=== PATIENT | female | born 2000 | race Caucasian/White ===

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

== ENCOUNTER 2020-09-23 17:39 | Inpatient (IN) | payer OTHER ==
[~2020-09-23] VITALS: Ht 147.3 cm; Wt 68.0 kg
[~2020-09-23 17:39] MED LIST changes: +AUGMENTIN 875-1 EACH PO; +IBUPROFEN600 MG PO; +KEFLEX500 MG PO; +SPRINTEC 28 DA1 EACH PO; +ZOFRAN ODT 4 MG4 MG PO
[2020-09-23 19:44] LABS: HEMOGLOBIN 11.1 gm/dl (12.3-15.3); RED BLOOD COUNT 4.07 M/UL (4.00-5.10); WHITE BLOOD COUNT 10.5 K/UL (4.5-11.0)
[2020-09-23 19:49] LABS: BUN/CREATININE RATIO 6 (0-10)
[2020-09-23] MEDS ORDERED: PROTONIX40 MG PO (20:58)
[2020-09-23] MEDS ORDERED: VISTARIL25 MG PO (21:00)
[2020-09-25 06:50] LABS: HEMOGLOBIN 9.2 gm/dl (12.3-15.3)
[2020-09-26] MEDS ORDERED: DOCUSATE SODIU100 MG PO (13:38)
[2020-09-26] MEDS ORDERED: IBUPROFEN600 MG PO (13:38)
[2020-09-26] MEDS ORDERED: LABETALOL HCL100 MG PO (13:38)
[2020-09-26] MEDS ORDERED: LORTAB 5-325 M1 EACH PO (13:38)
== END 2020-09-26 16:28 | disposition home or self-care (01) | DRG 786 ==
LOC: GENOP 17:39 → OB 20:23
PROVIDERS: Obstetrics & Gynecology; ADMIT Obstetrics & Gynecology
PROC: 0U7C7ZZ Dilation of Cervix, Via Natural or Artificial Opening (ICD-10-PCS; 2020-09-23)
PROC: 3E033VJ Introduction of Other Hormone into Peripheral Vein, Percutaneous Approach (ICD-10-PCS; 2020-09-24)
PROC: 10907ZC Drainage of Amniotic Fluid, Therapeutic from Products of Conception, Via Natural or Artificial Opening (ICD-10-PCS; 2020-09-24)
PROC: 10D00Z1 Extraction of Products of Conception, Low, Open Approach (ICD-10-PCS; principal; 2020-09-24 19:18)
PROC: 3E0234Z Introduction of Serum, Toxoid and Vaccine into Muscle, Percutaneous Approach (ICD-10-PCS; 2020-09-25)
DX: O14.94 Unspecified pre-eclampsia, complicating childbirth (principal); K83.1 Obstruction of bile duct; O36.0930 Maternal care for other rhesus isoimmunization, third trimester, not applicable or unspecified; Z3A.36 36 weeks gestation of pregnancy; Z37.0 Single live birth; O26.62 Liver and biliary tract disorders in childbirth; O62.1 Secondary uterine inertia; Z20.822 Contact with and (suspected) exposure to COVID-19; Z23 Encounter for immunization; O99.344 Other mental disorders complicating childbirth; F41.9 Anxiety disorder, unspecified; O99.513 Diseases of the respiratory system complicating pregnancy, third trimester; J45.909 Unspecified asthma, uncomplicated
CPT/HCPCS: 36415; 80053; 81001; 82247; 82248; 82570; 83615; 83735; 84156; 84550; 85014; 85018; 85025; 85379; 85384; 85461; 85610; 85730; 86850; 86900; 86901; 90715; C9113; J0595; J0690; J1170; J1885; J2250; J2274; J2405; J2590; J2765; J2790; J2795; J3430; J3475; J7030; J7120; Q0177; U0003

== ENCOUNTER 2020-10-12 05:23 | Emergency (ER) | payer OTHER ==
[~2020-10-12 05:23] MED LIST changes: +DOCUSATE SODIU100 MG PO; +LABETALOL HCL100 MG PO; +LORTAB 5-325 M1 EACH PO; +PROTONIX40 MG PO; +VISTARIL25 MG PO
[2020-10-12 06:04] LABS: HEMOGLOBIN 11.9 gm/dl (12.3-15.3); RED BLOOD COUNT 4.51 M/UL (4.00-5.10); WHITE BLOOD COUNT 10.2 K/UL (4.5-11.0)
[2020-10-12 06:25] LABS: BUN/CREATININE RATIO 14 (0-10)
[2020-10-12] MEDS ORDERED: PHENERGAN 25 MG25 M1 PO (09:32)
== END 2020-10-12 09:39 | disposition home or self-care (01) ==
LOC: ER1 05:23
PROVIDERS: Emergency Medicine
DX: O90.89 Other complications of the puerperium, not elsewhere classified (principal); R07.89 Other chest pain; R11.2 Nausea with vomiting, unspecified; O14.95 Unspecified pre-eclampsia, complicating the puerperium; Z98.890 Other specified postprocedural states; Z20.822 Contact with and (suspected) exposure to COVID-19
CPT/HCPCS: 80053; 81001; 82550; 82553; 83690; 83735; 83874; 84100; 84484; 85025; 85610; 85730; 87086; 93005; 96374; 96375; 99285; J2405; Q9967; U0002

== ENCOUNTER → 2020-10-24 | Outpatient (CLI) | payer OTHER ==
[~2020-10-24] MED LIST changes: +ALL DAY ALLERGY10 M2 PO; +HYDROXYZINE HCL10 MG PO; +PHENERGAN 25 MG25 M1 PO; +PREDNISONE 20 M20 MG PO; +PREDNISONE20 MG PO; +ZYRTEC10 MG PO
== END ==
LOC: ECHO 11:59
DX: R07.9 Chest pain, unspecified (principal)
CPT/HCPCS: ECHO; 93306

== ENCOUNTER 2020-11-06 05:15 | Emergency (ER) | payer OTHER ==
[~2020-11-06 05:15] MED LIST changes: -ALL DAY ALLERGY10 M2 PO; -HYDROXYZINE HCL10 MG PO; -PREDNISONE 20 M20 MG PO; -PREDNISONE20 MG PO; -ZYRTEC10 MG PO
[2020-11-06 06:02] LABS: HEMOGLOBIN 12.5 gm/dl (12.3-15.3); RED BLOOD COUNT 4.67 M/UL (4.00-5.10); WHITE BLOOD COUNT 10.6 K/UL (4.5-11.0)
[2020-11-06 06:18] LABS: BUN/CREATININE RATIO 12 (0-10)
== END 2020-11-06 09:54 | disposition home or self-care (01) ==
LOC: ER1 05:15
PROVIDERS: Emergency Medicine
DX: R51.9 Headache, unspecified (principal); F41.9 Anxiety disorder, unspecified; I82.890 Acute embolism and thrombosis of other specified veins; M54.2 Cervicalgia; R11.0 Nausea
CPT/HCPCS: 70450; 80053; 81001; 85025; 99284; J2060; Q9967

== ENCOUNTER 2020-11-09 00:41 | Emergency (ER) | payer OTHER ==
[2020-11-09 04:29] LABS: HEMOGLOBIN 11.9 gm/dl (12.3-15.3); RED BLOOD COUNT 4.45 M/UL (4.00-5.10)
[2020-11-09 04:58] LABS: BUN/CREATININE RATIO 17 (0-10)
[2020-11-09] MEDS ORDERED: HYDROXYZINE HCL10 MG PO (09:03)
== END 2020-11-09 09:15 | disposition home or self-care (01) ==
LOC: ER1 00:41
PROVIDERS: Emergency Medicine
DX: R20.2 Paresthesia of skin (principal)
CPT/HCPCS: 80053; 81001; 82550; 82553; 83735; 83874; 84484; 85025; 96374; 96375; 99285; J2060; J2405; Q9967

== ENCOUNTER 2020-11-12 18:43 | Emergency (ER) | payer OTHER ==
[~2020-11-12 18:43] MED LIST changes: +HYDROXYZINE HCL10 MG PO
== END 2020-11-13 00:51 | disposition home or self-care (01) ==
LOC: ER1 18:43
DX: R20.2 Paresthesia of skin (principal); Z88.8 Allergy status to other drugs, medicaments and biological substances; Z79.899 Other long term (current) drug therapy; Z90.89 Acquired absence of other organs
CPT/HCPCS: 72125; 72128; 72131; 84703; 99284

== ENCOUNTER 2020-11-24 16:27 | Emergency (ER) | payer OTHER | END 2020-11-24 17:24 | disposition left against medical advice (07) | LOC: ER1 16:27 | DX: Z53.21 Procedure and treatment not carried out due to patient leaving prior to being seen by health care provider (principal) ==

== ENCOUNTER 2020-11-28 06:13 | Emergency (ER) | payer OTHER | END 2020-11-28 07:20 | disposition home or self-care (01) | LOC: ER1 06:13 | DX: G47.9 Sleep disorder, unspecified (principal); Z88.8 Allergy status to other drugs, medicaments and biological substances; Z79.899 Other long term (current) drug therapy | CPT/HCPCS: 93005; 99283 ==

== ENCOUNTER 2020-12-12 05:08 | Emergency (ER) | payer OTHER ==
[2020-12-12 06:44] LABS: RED BLOOD COUNT 4.07 M/UL (4.00-5.10); WHITE BLOOD COUNT 10.3 K/UL (4.5-11.0)
[2020-12-12] MEDS ORDERED: PREDNISONE 20 M20 MG PO (07:02)
[2020-12-12] MEDS ORDERED: ALL DAY ALLERGY10 M2 PO (07:02)
[2020-12-12 07:27] LABS: BUN/CREATININE RATIO 14 (0-10)
== END 2020-12-12 07:46 | disposition home or self-care (01) ==
LOC: ER1 05:08
PROVIDERS: Emergency Medicine
DX: R21 Rash and other nonspecific skin eruption (principal); Z88.8 Allergy status to other drugs, medicaments and biological substances; Z90.89 Acquired absence of other organs
CPT/HCPCS: 80053; 83735; 84703; 85025; 99283

== ENCOUNTER → 2021-01-17 | Outpatient (CLI) | payer OTHER ==
[~2021-01-17] MED LIST changes: +ALL DAY ALLERGY10 M2 PO; +PREDNISONE 20 M20 MG PO; +PREDNISONE20 MG PO; +ZYRTEC10 MG PO
[2021-01-17 09:35] LABS: HEMOGLOBIN 12.3 gm/dl (12.3-15.3); RED BLOOD COUNT 4.61 M/UL (4.00-5.10); WHITE BLOOD COUNT 6.1 K/UL (4.5-11.0)
[2021-01-17 10:00] LABS: BUN/CREATININE RATIO 15 (0-10)
[2021-01-18 08:10] LABS: VITAMIN D, 25-HYDROXY 13.3 ng/mL (30.0-100.0)
== END ==
LOC: LAB 09:04
PROVIDERS: Family Medicine
DX: R20.2 Paresthesia of skin (principal)
CPT/HCPCS: 36415; 80053; 82607; 83921; 84443; 85025

== ENCOUNTER 2021-02-07 01:49 | Emergency (ER) | payer OTHER ==
[~2021-02-07 01:49] MED LIST changes: -PREDNISONE20 MG PO; -ZYRTEC10 MG PO
[2021-02-07 03:19] LABS: HEMOGLOBIN 13.3 gm/dl (12.3-15.3); RED BLOOD COUNT 4.76 M/UL (4.00-5.10); WHITE BLOOD COUNT 8.6 K/UL (4.5-11.0)
[2021-02-07 03:42] LABS: BUN/CREATININE RATIO 15 (0-10)
[2021-02-07] MEDS ORDERED: ZOFRAN ODT 4 MG4 MG PO (04:16)
== END 2021-02-07 04:25 | disposition home or self-care (01) ==
LOC: ER1 01:49
PROVIDERS: Student in an Organized Health Care Education/Training Program
DX: R51.9 Headache, unspecified (principal); R11.0 Nausea; Z90.89 Acquired absence of other organs; Z88.8 Allergy status to other drugs, medicaments and biological substances
CPT/HCPCS: 80053; 81001; 82550; 82553; 83735; 84100; 84439; 84443; 84703; 85025; 93005; 96374; 96375; 99284; J1885; J2765; J7120

== ENCOUNTER 2021-02-10 22:41 | Emergency (ER) | payer OTHER ==
[~2021-02-10 22:41] MED LIST changes: -PREDNISONE20 MG PO; -ZYRTEC10 MG PO
[2021-02-11] MEDS ORDERED: ZYRTEC10 MG PO (00:49)
[2021-02-11] MEDS ORDERED: PREDNISONE20 MG PO (00:49)
== END 2021-02-11 01:30 | disposition home or self-care (01) ==
LOC: ER1 22:41
DX: J30.9 Allergic rhinitis, unspecified (principal)
CPT/HCPCS: 70220; 99283

== ENCOUNTER → 2021-02-10 | Outpatient (CLI) | payer OTHER ==
[~2021-02-10] MED LIST changes: +PREDNISONE20 MG PO; +ZYRTEC10 MG PO
== END ==
LOC: NM 08:53
DX: R94.6 Abnormal results of thyroid function studies (principal); E04.9 Nontoxic goiter, unspecified; R74.01 Elevation of levels of liver transaminase levels; R20.2 Paresthesia of skin; J30.2 Other seasonal allergic rhinitis; E55.9 Vitamin D deficiency, unspecified; Z68.27 Body mass index [BMI] 27.0-27.9, adult
CPT/HCPCS: 78012; A9516

== ENCOUNTER → 2021-03-10 | Outpatient (CLI) | payer OTHER ==
[~2021-03-10] MED LIST changes: +PREDNISONE20 MG PO; +ZYRTEC10 MG PO
== END ==
LOC: EMI 03-05 15:00
DX: G50.1 Atypical facial pain (principal); R51.9 Headache, unspecified; R20.2 Paresthesia of skin
CPT/HCPCS: 70551

== ENCOUNTER 2021-03-14 22:52 | Emergency (ER) | payer OTHER ==
[2021-03-15 00:04] LABS: HEMOGLOBIN 13.1 gm/dl (12.3-15.3); RED BLOOD COUNT 4.73 M/UL (4.00-5.10); WHITE BLOOD COUNT 8.6 K/UL (4.5-11.0)
[2021-03-15 00:24] LABS: BUN/CREATININE RATIO 18 (0-10)
== END 2021-03-15 01:58 | disposition home or self-care (01) ==
LOC: ER1 22:52
PROVIDERS: Physician Assistant
DX: R07.9 Chest pain, unspecified (principal); R42 Dizziness and giddiness; R11.0 Nausea; R20.2 Paresthesia of skin; E03.9 Hypothyroidism, unspecified; Z79.899 Other long term (current) drug therapy
CPT/HCPCS: 71045; 80053; 82550; 82553; 83874; 84439; 84443; 84484; 85025; 93005; 99285

== ENCOUNTER 2021-04-02 23:47 | Emergency (ER) | payer OTHER | END 2021-04-03 00:58 | disposition home or self-care (01) | LOC: ER1 23:47 | DX: T18.108A Unspecified foreign body in esophagus causing other injury, initial encounter (principal); Z88.8 Allergy status to other drugs, medicaments and biological substances; Z90.49 Acquired absence of other specified parts of digestive tract; X58.XXXA Exposure to other specified factors, initial encounter | CPT/HCPCS: 99283 ==

== ENCOUNTER 2021-05-07 23:43 | Emergency (ER) | payer OTHER ==
[2021-05-08 01:09] LABS: HEMOGLOBIN 12.5 gm/dl (12.3-15.3); RED BLOOD COUNT 4.51 M/UL (4.00-5.10); WHITE BLOOD COUNT 6.5 K/UL (4.5-11.0)
[2021-05-08 01:48] LABS: BUN/CREATININE RATIO 12 (0-10)
== END 2021-05-08 05:05 | disposition home or self-care (01) ==
LOC: ER1 23:43
PROVIDERS: Physician Assistant
DX: R07.9 Chest pain, unspecified (principal); R05 Cough; Z20.822 Contact with and (suspected) exposure to COVID-19; Z88.8 Allergy status to other drugs, medicaments and biological substances
CPT/HCPCS: 71045; 80053; 82550; 82553; 83874; 84484; 84703; 85025; 93005; 99285; U0002

== ENCOUNTER 2021-05-21 23:10 | Emergency (ER) | payer OTHER | END 2021-05-22 00:06 | disposition home or self-care (01) | LOC: ER1 23:10 | DX: F41.1 Generalized anxiety disorder (principal); T42.1X5A Adverse effect of iminostilbenes, initial encounter; L98.491 Non-pressure chronic ulcer of skin of other sites limited to breakdown of skin; Z88.8 Allergy status to other drugs, medicaments and biological substances | CPT/HCPCS: 99283 ==

== ENCOUNTER 2021-06-07 21:59 | Emergency (ER) | payer OTHER ==
[2021-06-07 23:19] LABS: HEMOGLOBIN 13.4 gm/dl (12.3-15.3); RED BLOOD COUNT 4.95 M/UL (4.00-5.10); WHITE BLOOD COUNT 8.1 K/UL (4.5-11.0)
[2021-06-07 23:34] LABS: BUN/CREATININE RATIO 7 (0-10)
[2021-06-08] MEDS ORDERED: ZOFRAN ODT 4 MG4 MG PO (00:10)
[2021-06-08] MEDS ORDERED: LODINE CAP 300300 MG PO (00:10)
== END 2021-06-08 00:34 | disposition home or self-care (01) ==
LOC: ER1 21:59
PROVIDERS: Physician Assistant
DX: M79.601 Pain in right arm (principal); R11.0 Nausea; R42 Dizziness and giddiness
CPT/HCPCS: 73060; 73090; 73130; 80053; 85025; 85652; 86140; 99284

== ENCOUNTER 2021-07-05 20:13 | Emergency (ER) | payer OTHER ==
[~2021-07-05 20:13] MED LIST changes: +LODINE CAP 300300 MG PO
[2021-07-05 21:33] LABS: HEMOGLOBIN 13.2 gm/dl (12.3-15.3); RED BLOOD COUNT 4.61 M/UL (4.00-5.10)
[2021-07-05 21:59] LABS: BUN/CREATININE RATIO 12 (0-10)
[2021-07-06] MEDS ORDERED: LOPRESSOR 25 MG25 MG PO (00:12)
== END 2021-07-06 00:28 | disposition home or self-care (01) ==
LOC: ER1 20:13
PROVIDERS: Emergency Medicine
DX: R00.0 Tachycardia, unspecified (principal); T50.995A Adverse effect of other drugs, medicaments and biological substances, initial encounter; Z20.822 Contact with and (suspected) exposure to COVID-19
CPT/HCPCS: 71045; 80053; 82550; 82553; 83735; 84439; 84443; 84484; 84703; 85025; 85379; 93005; 99285; G0480; U0002

== ENCOUNTER → 2021-08-27 | Outpatient (CLI) | payer OTHER ==
[~2021-08-27] MED LIST changes: +LOPRESSOR 25 MG25 MG PO
== END ==
LOC: HEART 5 14:49
DX: R06.02 Shortness of breath (principal); R91.8 Other nonspecific abnormal finding of lung field
CPT/HCPCS: 71046; 94010; 94728; 94729

== ENCOUNTER → 2021-11-06 | Outpatient (CLI) | payer BC | LOC: EXRD 10-26 13:30 | DX: E03.9 Hypothyroidism, unspecified (principal); E04.2 Nontoxic multinodular goiter | CPT/HCPCS: 76536 ==

== ENCOUNTER 2022-02-11 01:58 | Emergency (ER) | payer BC, OTHER ==
[2022-02-11 03:29] LABS: HEMOGLOBIN 15.9 gm/dl (12.3-15.3); RED BLOOD COUNT 5.28 M/UL (4.00-5.10); WHITE BLOOD COUNT 10.4 K/UL (4.5-11.0)
[2022-02-11 03:54] LABS: BUN/CREATININE RATIO 15 (0-10)
== END 2022-02-11 04:44 | disposition home or self-care (01) ==
LOC: ER1 01:58
PROVIDERS: Family Medicine
DX: F41.9 Anxiety disorder, unspecified (principal); R00.0 Tachycardia, unspecified
CPT/HCPCS: 80053; 82550; 82553; 84439; 84443; 84484; 84703; 85025; 85379; 93005; 99285

== ENCOUNTER → 2022-03-22 | Outpatient (CLI) | payer BC, OTHER | LOC: HEART 5 14:30 | DX: R93.1 Abnormal findings on diagnostic imaging of heart and coronary circulation (principal); R55 Syncope and collapse; I08.1 Rheumatic disorders of both mitral and tricuspid valves | CPT/HCPCS: 93306 ==

== ENCOUNTER → 2022-04-05 | Outpatient (CLI) | payer BC, OTHER | LOC: LAB 16:26 | DX: Z20.822 Contact with and (suspected) exposure to COVID-19 (principal); R55 Syncope and collapse; R00.0 Tachycardia, unspecified | CPT/HCPCS: U0002 ==

== ENCOUNTER → 2022-04-06 | Outpatient (CLI) | payer BC, OTHER | LOC: CATH 03-24 10:00 | DX: R55 Syncope and collapse (principal); R00.0 Tachycardia, unspecified ==

== ENCOUNTER 2022-06-01 00:02 | Emergency (ER) | payer BC, OTHER ==
[2022-06-01 04:04] LABS: RED BLOOD COUNT 4.66 M/UL (4.00-5.10); WHITE BLOOD COUNT 14.8 K/UL (4.5-11.0)
[2022-06-01 04:24] LABS: BUN/CREATININE RATIO 17 (0-10)
== END 2022-06-01 04:50 | disposition home or self-care (01) ==
LOC: ER1 00:02
PROVIDERS: Emergency Medicine
DX: M54.2 Cervicalgia (principal); R07.9 Chest pain, unspecified
CPT/HCPCS: 71045; 80053; 81001; 84484; 84703; 85025; 93005; 99285